=== PATIENT | female | born 1960 | race African-American/Black ===

== ENCOUNTER 2020-11-02 11:02 | Outpatient (CLI) | payer MEDICARE, OTHER | END 2020-11-02 11:03 | disposition home or self-care (01) | LOC: CSHWCC 11:02 | PROVIDERS: ATTEND Nurse Practitioner Family | DX: E11.621 Type 2 diabetes mellitus with foot ulcer (principal); L97.429 Non-pressure chronic ulcer of left heel and midfoot with unspecified severity; G90.09 Other idiopathic peripheral autonomic neuropathy; I10 Essential (primary) hypertension | CPT/HCPCS: 11042; 99212; G0463 ==

== ENCOUNTER 2020-12-17 09:27 | Outpatient (CLI) | payer OTHER, MEDICARE | END 2020-12-17 09:28 | disposition home or self-care (01) | LOC: CSHWCC 09:27 | PROVIDERS: ATTEND Nurse Practitioner Family | DX: E11.621 Type 2 diabetes mellitus with foot ulcer (principal); E11.622 Type 2 diabetes mellitus with other skin ulcer; L97.509 Non-pressure chronic ulcer of other part of unspecified foot with unspecified severity; L98.492 Non-pressure chronic ulcer of skin of other sites with fat layer exposed; G90.09 Other idiopathic peripheral autonomic neuropathy; I10 Essential (primary) hypertension | CPT/HCPCS: 11042 ==